=== PATIENT | male | born 1990 | race Caucasian/White ===

== ENCOUNTER 2017-04-12 20:55 | Emergency (ER) | payer MEDICAID ==
[~2017-04-12] VITALS: Ht 172.7 cm; Wt 77.1 kg
[2017-04-12 21:16] VITALS: BP 144/90
== END 2017-04-13 01:28 | disposition home or self-care (01) ==
LOC: ER 20:59
DX: F32.9 Major depressive disorder, single episode, unspecified (principal); Z76.0 Encounter for issue of repeat prescription

== ENCOUNTER 2017-06-16 09:21 | Emergency (ER) | payer MEDICAID ==
[~2017-06-16] VITALS: Ht 172.7 cm; Wt 79.4 kg
[2017-06-16 09:40] VITALS: BP 145/103
== END 2017-06-16 10:50 | disposition home or self-care (01) ==
LOC: ER 09:21
DX: F32.9 Major depressive disorder, single episode, unspecified (principal); Z76.0 Encounter for issue of repeat prescription

== ENCOUNTER 2020-09-09 01:57 | Emergency (ER) | payer MEDICAID ==
[~2020-09-09] VITALS: Ht 175.3 cm; Wt 86.2 kg
[2020-09-09] MEDS ORDERED: LORazepam 0.5 MG TAB PO ONE (04:00)
[2020-09-09] MEDS ORDERED: TETANUS-DIPTH-ACEL PERTUSSIS 0.5ML SYR Tdap IM ONE (04:30)
[2020-09-09] MEDS ORDERED: cefTRIAXone SOD 1,000 MG VL IM ONE (04:30)
[2020-09-09] MEDS ORDERED: LIDOCAINE 1% HCL (LOCAL ANESTH.) INJ 20ML MDV ONE (04:54)
[2020-09-09] MEDS ORDERED: BACITRACIN TOP OINT 1 UD PKG TOP ONE (06:00)
[2020-09-09 06:13] VITALS: BP 137/87
== END 2020-09-09 06:19 | disposition home or self-care (01) ==
LOC: ER 01:59
DX: S51.811A Laceration without foreign body of right forearm, initial encounter (principal); F41.9 Anxiety disorder, unspecified; F32.9 Major depressive disorder, single episode, unspecified; F12.10 Cannabis abuse, uncomplicated; F20.9 Schizophrenia, unspecified; Z88.6 Allergy status to analgesic agent; W18.39XA Other fall on same level, initial encounter; Y93.89 Activity, other specified; Y92.89 Other specified places as the place of occurrence of the external cause; Y99.8 Other external cause status
CPT/HCPCS: 12004; 73090; 90471; 90715; 96372; 99284; J0696; J2001

== ENCOUNTER 2020-09-11 20:16 | Emergency (ER) | payer MEDICAID ==
[~2020-09-11] VITALS: Ht 172.7 cm; Wt 86.2 kg
[2020-09-11 21:00] VITALS: BP 148/97
== END 2020-09-11 23:02 | disposition home or self-care (01) ==
LOC: ER 20:16
DX: S51.811D Laceration without foreign body of right forearm, subsequent encounter (principal); F41.9 Anxiety disorder, unspecified; F32.9 Major depressive disorder, single episode, unspecified; F20.9 Schizophrenia, unspecified; Z88.8 Allergy status to other drugs, medicaments and biological substances; X58.XXXD Exposure to other specified factors, subsequent encounter